=== PATIENT | male | born 1975 | race African-American/Black ===

== ENCOUNTER 2022-01-06 18:23 | Emergency (ER) | payer SELFPAY ==
--- NOTE | 2022-01-06 18:31 | ED.HA ---
HPI - Headache General Chief Complaint: Headache Stated Complaint: Headache Time Seen by Provider: 01/06/22 18:31 Source: patient and RN notes reviewed History of Present Illness HPI Narrative: Patient is a 46-year-old male that presents the urgent care with complaints of headache, body aches and fatigue. 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 Patient states that he took aspirin and DayQuil. States that he was told by his manager hospital that he cannot return to work until he has a doctor's note. Patient denies any known fevers, nausea or vomiting. Patient denies any recent exposures. No other acute complaints. No acute distress noted. Patient aware of the plan of care. Some parts of this dictation were generated by voice recognition software and may contain typographical and/or grammatical inaccuracies. Related Data Home Medications Medication Instructions Recorded Confirmed No Home Medications 01/06/22 01/06/22 Allergies Allergy/AdvReac Type Severity Reaction Status Date / Time No Known Allergies Allergy Verified 01/06/22 18:47 Review of Systems Review of Systems: CONSTITUTIONAL: Denies fever, chills, or sweats. Reports of fatigue EYES: Denies visual changes, redness, or discharge. ENT: Denies rhinorrhea, congestion, sore throat, or otalgia. CARDIOVASCULAR: Denies chest pain, palpitations, or edema. RESPIRATORY: Denies cough or dyspnea. GASTROINTESTINAL: Denies abdominal pain, nausea, vomiting, or diarrhea. GENITOURINARY: Denies dysuria or hematuria. SKIN: Denies rash or itching. MUSCULOSKELETAL: Denies back pain, joint pain. Reports of body aches NEUROLOGIC: Reports of headache All other systems reviewed are negative, except as documented in HPI. PMFSH Comments At the time of my signature, I reviewed and agree with the nursing past medical, surgical, social, and family history. There is no relevant family history pertinent to the patient complaint. Exam Narrative: GENERAL: This is a well-nourished, well-developed patient, in no apparent distress. HEAD: normocephalic, atraumatic. EYES: PERRL. Sclera clear/white. Vision is grossly intact. EARS: External ears normal, auditory canals clear and without drainage, TMs normal without perforation. Hearing grossly intact. NOSE: External nose normal with no obvious nasal discharge, nares without redness, no rhinorrhea. THROAT: Mucous membranes moist, posterior pharynx clear. Moderate postnasal drainage NECK: Neck supple, non-tender without lymphadenopathy, masses or thyromegaly. CARDIOVASCULAR: Regular rate and rhythm without murmurs, gallops, or rubs. RESPIRATORY: Clear to auscultation. Breath sounds equal bilaterally. No wheezes, rales, or rhonchi. SKIN: warm, intact with no suspicious lesions or rash, good texture and turgor. NEURO: awake, alert, and oriented to person, place and time. There were no obvious focal neurologic abnormalities. EXTREMITIES: No clubbing, cyanosis, or edema. Course Course Level of Care: Express Care Visit Vital Signs Vital signs: Vital Signs Temperature 98.3 F 01/06/22 18:32 Pulse Rate 86 01/06/22 18:32 Respiratory Rate 20 01/06/22 18:32 Blood Pressure 133/79 01/06/22 18:32 Pulse Oximetry 99 01/06/22 18:32 Temperature 98.3 F 01/06/22 18:32 Pulse Rate 86 01/06/22 18:32 Respiratory Rate 20 01/06/22 18:32 Blood Pressure 133/79 01/06/22 18:32 Pulse Oximetry 99 01/06/22 18:32 reviewed MDM - Headache MDM Narrative Medical decision making narrative: Reviewed lab results with the patient. He is aware that flu and strep swab are both negative. Educated him on strep culture we will call within 72 hours which is positive antibiotics are necessary. Advised the patient to use Tylenol/ibuprofen as needed. Increase water intake and rest. May use an [id number] antihistamine for sinus pressure and postnasal drainage. Follow-up with your PCP within 2 to 5
[2022-01-06 18:32] VITALS: BP 133/79; PULSE 86; RESP 20; TEMP 36.8; O2SAT 99
== END 2022-01-06 19:20 | disposition home or self-care (01) ==
PROVIDERS: Emergency Provider Nurse Practitioner Family
DX: B34.9 Viral infection, unspecified (principal)
CPT/HCPCS: 87081; 87804; 87880; 99213; G0463